=== PATIENT | male | born 1950 | race Caucasian/White ===

== ENCOUNTER 2025-01-14 07:10 | Day surgery (SDC) | payer MEDICARE ==
[2025-01-14] VITALS (16 sets, daily range): BP systolic 90–146; BP diastolic 50–90
[~2025-01-14] VITALS: Ht 180.3 cm; Wt 68.9 kg
[~2025-01-14 07:10] MED LIST: FINA5 PO; METOPROLOL PO; TAMS.4ER PO
[2025-01-14] MEDS ORDERED: Lactated Ringer's 1,000 ML IV SCH ×2 (07:25→08:55)
[2025-01-14] MEDS ORDERED: Ropivacaine 0.5% HCl/Pf 123.125 MG,EPINEPHrine HCL 0.25 MG,Ketorolac Tromethamine 15 MG... INFIL SCH (07:25)
[2025-01-14] MEDS ORDERED: OxyCODONE HCL 10 MG TABCR PO SCH (07:25)
[2025-01-14] MEDS ORDERED: Acetaminophen 500 MG Tab PO SCH ×2 (07:25→16:00)
[2025-01-14] MEDS ORDERED: CeFAZolin Sodium 2,000 MG in NS 100 ML IV SCH ×2 (07:25→17:00)
[2025-01-14] MEDS ORDERED: Chlorhexidine Mouth Care 15 ML UDC MT SCH (07:25)
[2025-01-14] MEDS ORDERED: Tranexamic Acid 100 ML IV SCH (07:30)
[2025-01-14] MEDS ORDERED: METO25ER PO (07:34)
[2025-01-14] MEDS ORDERED: Midazolam HCl 1MG / ML 2ML Vial ONE (08:06)
[2025-01-14] MEDS ORDERED: propofoL 60 ML IV ONE (08:06)
[2025-01-14] MEDS ORDERED: HYDROmorphone HCl/Pf 1MG SYR IV PRN ×3 (08:50→11:35)
[2025-01-14] MEDS ORDERED: Magnesium Hydroxide Conc 10 ML UDC PO PRN (08:50)
[2025-01-14] MEDS ORDERED: DiphenhydrAMINE HCL 25 MG Cap PO PRN (08:50)
[2025-01-14] MEDS ORDERED: Ondansetron HCl 2 MG / ML 2ML Vial IV PRN ×2 (08:50→11:35)
[2025-01-14] MEDS ORDERED: Bisacodyl 10 MG Supp PR PRN (08:50)
[2025-01-14] MEDS ORDERED: Promethazine HCl 25 MG Tab PO PRN (08:50)
[2025-01-14] MEDS ORDERED: OxyCODONE HCL 5 MG TAB PO PRN ×2 (08:50)
--- NOTE | 2025-01-14 08:51 | NUR ---
Ambulatory in Day Surgery. History, Chart, Medications and Allergies reviewed before start of procedure. Patient confirms NPO status and agrees with scheduled surgery. Lungs clear T/O to Auscultation. Patient reports completing Chlorhexadine shower X2 prior to admission to hospital. Surgical site prepped with 2% Chlorhexidine cloth wipe. Patient States Post-Procedure ride home has been arranged.
[2025-01-14] MEDS ORDERED: Metoclopramide HCl 5MG / ML 2ML Vial IV PRN (08:55)
[2025-01-14] MEDS ORDERED: Finasteride 5 MG Tab PO SCH (09:00)
[2025-01-14] MEDS ORDERED: Tamsulosin HCl 0.4 MG Cap PO SCH (09:00)
[2025-01-14] MEDS ORDERED: Metoprolol Succinate 25 MG TABCR PO SCH (09:00)
[2025-01-14] MEDS ORDERED: Ketorolac Tromethamine 30mg Vial ONE (09:04)
[2025-01-14] MEDS ORDERED: Ondansetron HCl 2 MG / ML 2ML Vial ONE (09:04)
[2025-01-14] MEDS ORDERED: Dexamethasone Sod Phos 10 MG/ML 1ML VIAL ONE (09:04)
[2025-01-14] MEDS ORDERED: Phenylephrine HCl 100 MCG/ML-NS 10MLSYR (1MG/10ML) ONE (09:49)
[2025-01-14] MEDS ORDERED: propofoL 40 ML IV ONE (09:49)
[2025-01-14] MEDS ORDERED: FentaNYL Citrate 50 MCG/ML 2 ML Injection IV PRN ×2 (11:30→11:35)
--- NOTE | 2025-01-14 11:33 | NUR ---
POST OP ARRIVAL TO SURGICAL UNIT VIA HOSPITAL BED, ALERT, ORIENTED & PLEASANT. LUNGS CLEAR. HRR. ABLE TO WIGGLE TOES, PUMP ANKLES, & HAS FULL SENSATION. PPP. R KNEE w/ AQUACEL; NO DRNG NOTED. SCDs, KNEE HIGH LUIZ HOSE, & CRYOTHERAPY IN PLACE.
[2025-01-14] MEDS ORDERED: Ketorolac Tromethamine 15mg Vial IV SCH (12:00)
[2025-01-14] MEDS ORDERED: ASPI81CH PO (14:40)
[2025-01-14] MEDS ORDERED: ACET500 PO (14:40)
[2025-01-14] MEDS ORDERED: OXYC5 PO (14:41)
[2025-01-14] MEDS ORDERED: DOCU100 PO (14:41)
--- NOTE | 2025-01-14 18:40 | NUR ---
DISCARGE SUMMARY PT TOLERATING LIQUIDS AND FOOD WELL. PAIN IS TOLERABLE. AMBULATED WITH WALKER TO BATHROOM TO VOID. WORKED WITH THERAPY. DISCHARGE EDUCATION COMPLETED AND ESCORTED OUT VIA WC. AMBULATES WITH WALKER
[2025-01-14] MEDS ORDERED: Docusate Sodium 100 MG Cap PO SCH (21:00)
[2025-01-15] MEDS ORDERED: Aspirin 81 MG Chew PO SCH (09:00)
== END 2025-01-14 18:40 | disposition home or self-care (01) ==
LOC: ORSCMMR 07:10 → ORD 08:30 → ORSCMMR 08:30 → ORD 10:30 → SURS 11:20 → ORSCMMR 18:40
PROVIDERS: Orthopaedic Surgery
PROC: 0SRC0JZ Replacement of Right Knee Joint with Synthetic Substitute, Open Approach (ICD-10-PCS; principal; 2025-01-14 08:30)
DX: M17.11 Unilateral primary osteoarthritis, right knee (principal); M25.561 Pain in right knee; I10 Essential (primary) hypertension; Z79.899 Other long term (current) drug therapy
CPT/HCPCS: 73560-RT; 97116; 97162; 97530; A9270; C1713; C1776; C1887; J0171; J0690; J0735; J1100; J1885; J2250; J2371; J2405; J2704; J2795; J7120